=== PATIENT | male | born 1990 | race Caucasian/White ===

== ENCOUNTER 2018-08-30 10:29 | Emergency (ER) | payer BC, OTHER ==
[2018-08-30 10:35] VITALS: BP 131/84; PULSE 107; RESP 18; TEMP 98.2
[2018-08-30] MEDS ORDERED: IBUPROFEN 600 MG TAB PO STA (10:58)
--- NOTE | 2018-08-30 10:59 | ED ---
Lower Extremity Injury HPI - General Chief Complaint: Extremity Injury, Lower Stated Complaint: [facility] - lt leg injury Time Seen by Provider: 08/30/18 10:44 Source: patient, RN notes reviewed Mode of arrival: ambulatory Limitations: no limitations - History of Present Illness Initial Comments: 19-year-old male presents emergency Department chief complaint of left knee pain. Patient states that he was at work yesterday states that he is also becoming he states he junk back striking his left knee into a metal handle on a bucket. Patient states she's had pain ever sent. He states the burning swelling type pain. Patient denies any ecchymosis, or laxity noted. States it does not feel like her to give out. Patient had no prior knee injury. Patient offers no other complaints. - Related Data Home Medications Medication Instructions Recorded Confirmed Acetaminophen Tab [Tylenol Tab] 325 - 650 mg PO Q6H PRN 02/22/16 06/22/16 Ibuprofen [Motrin] 200 - 400 mg PO Q6HR PRN 02/22/16 06/22/16 Previous Rx's Medication Instructions Recorded Ibuprofen [Motrin] 800 mg PO Q8HR PRN #20 tab 06/22/16 Ibuprofen [Motrin] 600 mg PO Q8HR PRN #30 tab 08/30/18 Allergies Allergy/AdvReac Type Severity Reaction Status Date / Time No Known Allergies Allergy Verified 06/22/16 11:35 Review of Systems ROS Statement: Those systems with pertinent positive or pertinent negative responses have been documented in the HPI. ROS Other: All systems not noted in ROS Statement are negative. Past Medical History Past Medical History: No Reported History Additional Past Medical History / Comment(s): INGUINAL HERNIA History of Any Multi-Drug Resistant Organisms: None Reported Past Surgical History: Hernia Repair Past Anesthesia/Blood Transfusion Reactions: No Reported Reaction Additional Past Anesthesia/Blood Transfusion Reaction / Comment(s): NO PRIOR SURGICAL HX Past Psychological History: No Psychological Hx Reported Smoking Status: Current every day smoker Past Alcohol Use History: None Reported, Rare Past Drug Use History: None Reported - Past Family History Mother Family Medical History: No Reported History General Exam Limitations: no limitations General appearance: alert, in no apparent distress Head exam: Present: atraumatic, normocephalic, normal inspection Respiratory exam: Present: normal lung sounds bilaterally. Absent: respiratory distress, wheezes, rales, rhonchi, stridor Cardiovascular Exam: Present: regular rate, normal rhythm, normal heart sounds. Absent: systolic murmur, diastolic murmur, rubs, gallop, clicks Extremities exam: Present: other (Left knee mild tenderness to the lateral posterior aspect no laxity negative anterior posterior drawer neurovascular intact full range of motion no ecchymosis) Skin exam: Present: warm, dry, intact, normal color. Absent: rash Course Vital Signs 08/30/18 10:31 Temperature 98.2 F Pulse Rate 107 H Respiratory 18 Rate Blood Pressure 131/84 O2 Sat by Pulse 97 Oximetry Medical Decision Making - Medical Decision Making 19-year-old male presented for left leg pain. Patient left leg/knee contusion. Patient x-rays were negative. Patient discharged with ibuprofen. Disposition Clinical Impression: Contusion of left knee Disposition: HOME SELF-CARE Condition: Stable Instructions (If sedation given, give patient instructions): Knee Pain (ED) Additional Instructions: Please return to the Emergency Department if symptoms worsen or any other concerns. Prescriptions: Ibuprofen [Motrin] 600 mg PO Q8HR PRN #30 tab PRN Reason: Pain Is patient prescribed a controlled substance at d/c from ED?: No Referrals: Kristian Jones DO [Primary Care Provider] - 1-2 days Time of Disposition: 11:51
--- NOTE | 2018-08-30 11:14 | XR ---
EXAMINATION TYPE: XR knee complete LT DATE OF EXAM: 08/30/2018 CLINICAL HISTORY: pain TECHNIQUE: Three views of the left knee are obtained. COMPARISON: None. FINDINGS: There is no acute fracture/dislocation. The tri-compartment joint spaces appear within no rmal limits. The overlying soft tissue appears unremarkable. IMPRESSION: There is no acute fracture or dislocation ICD 10 NO FRACTURE, INITIAL EVALUATION
== END 2018-08-30 12:10 | disposition home or self-care (01) ==
LOC: EC 10:29
DX: S80.02XA Contusion of left knee, initial encounter (principal); F17.200 Nicotine dependence, unspecified, uncomplicated; W31.9XXA Contact with unspecified machinery, initial encounter; Y92.69 Other specified industrial and construction area as the place of occurrence of the external cause; Y99.0 Civilian activity done for income or pay
CPT/HCPCS: 99283

== ENCOUNTER 2018-11-12 14:32 | Emergency (ER) | payer BC, OTHER ==
[2018-11-12 14:45] VITALS: BP 143/97; PULSE 99; RESP 18; TEMP 97.8
--- NOTE | 2018-11-12 15:50 | XR ---
EXAMINATION TYPE: XR shoulder complete LT DATE OF EXAM: 11/12/2018 CLINICAL HISTORY: pain COMPARISON: NONE TECHNIQUE: Three views of the left shoulder are obtained. FINDINGS: There is no acute fracture/dislocation evident. The acromioclavicular and glenohumeral julienne int spaces appear within normal limits. The visualized ribs are intact and unremarkable. IMPRESSION: 1. There is no acute fracture or dislocation. ICD 10 NO FRACTURE, INITIAL EVALUATION
--- NOTE | 2018-11-12 15:58 | ED ---
Neck Injury/Pain HPI - General Chief Complaint: Neck Pain/Injury Stated Complaint: Neck/Shoulder Pain Time Seen by Provider: 11/12/18 14:44 Mode of arrival: ambulatory Limitations: no limitations - History of Present Illness Initial Comments: 27-year-old male presenting today for chief complaint of left shoulder pain. Patient states he has had left shoulder pain for years however just obtain insurance. Patient states that the pain increases with lifting left shoulder. Patient denies any direct or indirect trauma to the shoulder he denies any fever chills night sweats or swelling of the left upper extremity. Patient denies chest or back pain denies any dyspnea or dyspnea on exertion. Patient states the pain is from the left shoulder towards the left sided neck. He denies any injury or trauma to the neck or recent falls he denies any numbness tingling or loss sensation of the left upper extremity. Remaining review of systems negative upon arrival patient appears well. - Related Data Home Medications Medication Instructions Recorded Confirmed Acetaminophen Tab [Tylenol Tab] 325 - 650 mg PO Q6H PRN 02/22/16 06/22/16 Ibuprofen [Motrin] 200 - 400 mg PO Q6HR PRN 02/22/16 06/22/16 Previous Rx's Medication Instructions Recorded Ibuprofen [Motrin] 800 mg PO Q8HR PRN #20 tab 06/22/16 Ibuprofen [Motrin] 600 mg PO Q8HR PRN #30 tab 08/30/18 Allergies Allergy/AdvReac Type Severity Reaction Status Date / Time No Known Allergies Allergy Verified 06/22/16 11:35 Review of Systems ROS Statement: Those systems with pertinent positive or pertinent negative responses have been documented in the HPI. ROS Other: All systems not noted in ROS Statement are negative. Past Medical History Past Medical History: No Reported History Additional Past Medical History / Comment(s): INGUINAL HERNIA History of Any Multi-Drug Resistant Organisms: None Reported Past Surgical History: Hernia Repair Past Anesthesia/Blood Transfusion Reactions: No Reported Reaction Additional Past Anesthesia/Blood Transfusion Reaction / Comment(s): NO PRIOR SURGICAL HX Past Psychological History: No Psychological Hx Reported Smoking Status: Current every day smoker Past Alcohol Use History: None Reported, Rare Past Drug Use History: None Reported - Past Family History Mother Family Medical History: No Reported History General Exam - General Exam Comments Initial Comments: General: The patient is awake and alert, in no distress, and does not appear acutely ill. Eye: Pupils are equal, round and reactive to light, extra-ocular movements are intact. No nystagmus. There is normal conjunctiva bilaterally. No signs of icterus. Ears, nose, mouth and throat: There are moist mucous membranes and no oral lesions. Neck: The neck is supple, there is no tenderness or JVD. Cardiovascular: There is a regular rate and rhythm. No murmur, rub or gallop is appreciated. Respiratory: Lungs are clear to auscultation, respirations are non-labored, breath sounds are equal. No wheezes, stridor, rales, or rhonchi. Musculoskeletal: Normal ROM of the shoulders bilaterally patient does admit to tenderness with range of motion at the left shoulder positive Neer testing of the left shoulder positive empty ca test in the left shoulder, no tenderness of the right shoulder. Strength 5/5 of the upper extremities equal compressible bilaterally. Sensation intact of the upper shoulders equal in comparison bilaterally Radialulses equal bilaterally 2+. Neurological: A&O x 3. CN II-XII intact, There are no obvious motor or sensory deficits. Coordination appears grossly intact. Speech is normal. Skin: Skin is warm and dry and no rashes or lesions are noted. Psychiatric: Cooperative, appropriate mood & affect, normal judgment. Limitations: no limitations Course Vital Signs 11/12/18 11/12/18 14:42 16:05 Temperature 97.8 F 97.8 F Pulse Rate 99 99 Respiratory 18 18 Rate Blood Pressure 143/97 143/97 O2 Sat by Pulse 97 97 Oximetry Medical Decision Making - Medical Decision Making 1. 27-year-old male presenting for left shoulder pain times years. Patient states is persistent increasing with range of motion. Patient is positive Neer testing as well as empty can. Concerning for possible rotator cuff injury. Patient has no constitutional symptoms. No fever chills night sweats. Pain is a reproducible. Patient denies chest pain or shortness of breath. At this time feel patient is stable for discharge with outpatient orthopedic surgery for further evaluation. Patient is neurovascularly intact. Patient is agreeable care plan as well as discharged today. Return parameters were discussed at length the patient. Discussed the case with a provider Dr. Crum was agreeable care plan and discharged Disposition Clinical Impression: Chronic left shoulder pain Disposition: HOME SELF-CARE Condition: Good Instructions (If sedation given, give patient instructions): Arthralgia (ED) Additional Instructions: Please use medication as discussed. Please follow-up with orthopedic surgery within the next 1-2 weeks. Please return to emergency room if the symptoms increase or worsen or for any other concerns. Is patient prescribed a controlled substance at d/c from ED?: No Referrals: Kristian Jones DO [Primary Care Provider] - 1-2 days Desmond Hwang MD [STAFF PHYSICIAN] - 1-2 days Time of Disposition: 15:58
== END 2018-11-12 16:05 | disposition home or self-care (01) ==
LOC: EC 14:32
DX: G89.29 Other chronic pain (principal); M25.512 Pain in left shoulder; M54.2 Cervicalgia; F17.200 Nicotine dependence, unspecified, uncomplicated
CPT/HCPCS: 99283

== ENCOUNTER 2020-06-29 19:20 | Emergency (ER) | payer OTHER ==
[2020-06-29 19:24] VITALS: RESP 18; TEMP 99.3
--- NOTE | 2020-06-29 19:36 | ED ---
General Adult HPI - General Chief complaint: Extremity Injury, Lower Stated complaint: rt foot injury Time Seen by Provider: 06/29/20 19:25 Source: patient Mode of arrival: wheelchair Limitations: no limitations - History of Present Illness Initial comments: 29-year-old male presenting to emergency Department with chief complaint of right foot pain. Patient reports this started earlier today when he was walking his dog, he was pulled and stepped hard on his right foot. Patient reports ecchymosis, erythema and swelling along the lateral aspect of her right foot. He does report fever with metatarsal tenderness. Mild lateral malleolar tenderness of the right foot as well. Denies any numbness or tingling. Denies medication to alleviate the symptoms. - Related Data Home Medications Medication Instructions Recorded Confirmed Acetaminophen Tab [Tylenol Tab] 325 - 650 mg PO Q6H PRN 02/22/16 06/22/16 Ibuprofen [Motrin] 200 - 400 mg PO Q6HR PRN 02/22/16 06/22/16 Previous Rx's Medication Instructions Recorded Ibuprofen [Motrin] 800 mg PO Q8HR PRN #20 tab 06/22/16 Ibuprofen [Motrin] 600 mg PO Q8HR PRN #30 tab 08/30/18 Allergies Allergy/AdvReac Type Severity Reaction Status Date / Time No Known Allergies Allergy Verified 06/22/16 11:35 Review of Systems ROS Statement: Those systems with pertinent positive or pertinent negative responses have been documented in the HPI. ROS Other: All systems not noted in ROS Statement are negative. Past Medical History Past Medical History: No Reported History Additional Past Medical History / Comment(s): INGUINAL HERNIA History of Any Multi-Drug Resistant Organisms: None Reported Past Surgical History: Hernia Repair Past Anesthesia/Blood Transfusion Reactions: No Reported Reaction Additional Past Anesthesia/Blood Transfusion Reaction / Comment(s): NO PRIOR SURGICAL HX Past Psychological History: No Psychological Hx Reported Smoking Status: Current some day smoker Past Alcohol Use History: None Reported, Rare Past Drug Use History: None Reported - Past Family History Mother Family Medical History: No Reported History General Exam - General Exam Comments Initial Comments: General: Well-developed well-nourished distress HEENT: Normocephalic/atraumatic, PERLL, pharynx erythema, swallowing well, EAC no erythema, no exudates, TM clear, no cervical lymph nodes Neck: Supple, nontender, trachea midline Chest/Lungs: Normal respirations, no signs of respiratory distress clear to auscultation bilaterally no wheezes, rales, rhonchi Cardiac: Regular rate and rhythm, normal S1-S2, no murmurs rubs or gallops Abdomen/GI: Soft nontender, bowel sounds equal or quadrant x4, no guarding, no rebound no CVA tenderness Musculoskeletal: Tenderness along the lateral aspect of the right foot, ecchymosis and swelling along the lateral aspect of the right foot,, full range of motion, no edema, strength equal bilaterally, sensation intact Skin: Warmth, no rashes or lesions, no cyanosis or diaphoresis Neurologic: AAO x 3, CN 2-12 intact, Psychiatric: Mood and affect normal, judgment normal Limitations: no limitations Course Vital Signs 06/29/20 06/29/20 19:22 19:48 Temperature 99.3 F Pulse Rate 113 H 110 H Respiratory 18 18 Rate Blood Pressure 147/84 137/76 O2 Sat by Pulse 99 96 Oximetry Procedures - Orthopedic Splinting/Casting Injury #1 Side: right Lower Extremity Injury Location: foot Lower Extremity Immobilizer: posterior splint, Luciano wrap, synthetic pre-padded splint Other Orthopedic Equipment: crutches Medical Decision Making - Medical Decision Making 29-year-old male presenting to the emergency department with chief complaint right foot pain. On physical examination, patient is neurovascularly intact. H e does have ecchymosis and swelling along the lateral aspect of the right foot. X-ray reveals a fracture at the base of the fifth metatarsal. Posterior splint applied. Patient was offered analgesia, he declined. Patient was advised to follow with medical reception specialist. Strict return for were thoroughly discussed the patient is an attending agreeable. Case discussed with physician. Disposition Clinical Impression: Fracture of fifth metatarsal bone, Right foot injury Disposition: HOME SELF-CARE Condition: Stable Instructions (If sedation given, give patient instructions): Foot Fracture in Adults (ED) Additional Instructions: Rest, ice, keep the foot elevated. Alternate between Tylenol and Motrin for pain control. Follow-up with medical reception specialist. Return to emergency department if symptoms worsen. Is patient prescribed a controlled substance at d/c from ED?: No Referrals: None,Stated [Primary Care Provider] - 1-2 days Arpit Dodd DO [Doctor of Osteopathic Medicine] - 1-2 days Time of Disposition: 20:32
[2020-06-29 19:55] VITALS: BP 137/76
--- NOTE | 2020-06-29 19:56 | XR ---
EXAMINATION TYPE: XR ankle complete RT DATE OF EXAM: 06/29/2020 COMPARISON: 10/03/2011 HISTORY: Pain. Injury. TECHNIQUE: 3 views FINDINGS: Ankle mortise is anatomic. I see no fracture nor dislocation. Joint spaces are fairly linda l. IMPRESSION: No fracture seen. No change.
--- NOTE | 2020-06-29 19:57 | XR ---
EXAMINATION TYPE: XR foot complete RT DATE OF EXAM: 06/29/2020 COMPARISON: NONE HISTORY: Pain TECHNIQUE: 3 views FINDINGS: There is nondisplaced transverse fracture across the base of the fifth metatarsal. Fragment s are 3 mm. The toes appear intact. Hindfoot is intact. IMPRESSION: Acute fracture base of the fifth metatarsal.
[2020-06-29 20:53] VITALS: PULSE 105
== END 2020-06-29 20:54 | disposition home or self-care (01) ==
LOC: EC 19:20
DX: S92.351A Displaced fracture of fifth metatarsal bone, right foot, initial encounter for closed fracture (principal); F17.200 Nicotine dependence, unspecified, uncomplicated; W01.0XXA Fall on same level from slipping, tripping and stumbling without subsequent striking against object, initial encounter; Y93.K1 Activity, walking an animal; Y92.89 Other specified places as the place of occurrence of the external cause
CPT/HCPCS: 29515; 99283

== ENCOUNTER 2024-02-13 10:26 | Emergency (ER) | payer OTHER ==
[2024-02-13 10:41] VITALS: BP 130/83; PULSE 71; RESP 18; TEMP 98.1
--- NOTE | 2024-02-13 10:43 | ED ---
Chest Pain HPI - General Stated Complaint: abn labs Time Seen by Provider: 02/13/24 10:40 Source: patient, RN notes reviewed - History of Present Illness Initial Comments: Quick Note- 33-year-old male with chief complaint of intermittent chest tightness for the last 3 days. He is also endorsing exertional dyspnea. States he has been having symptoms of palpitations and the tightness will radiate into his back. Patient states that he did have a viral infection last there is no history of bodyaches, fevers or nasal congestion and cough however the symptoms have subsided. Denies history of DVT/PE. no blood thinner use. - Related Data Home Medications Medication Instructions Recorded Confirmed Acetaminophen Tab [Tylenol Tab] 325 - 650 mg PO Q6H PRN 02/22/16 06/22/16 Ibuprofen [Motrin] 200 - 400 mg PO Q6HR PRN 02/22/16 06/22/16 Previous Rx's Medication Instructions Recorded Ibuprofen [Motrin] 800 mg PO Q8HR PRN #20 tab 06/22/16 Ibuprofen [Motrin] 600 mg PO Q8HR PRN #30 tab 08/30/18 Ibuprofen [Motrin] 600 mg PO Q6HR PRN #20 tab 12/10/23 Allergies Allergy/AdvReac Type Severity Reaction Status Date / Time No Known Allergies Allergy Verified 02/13/24 10:41 Review of Systems ROS Statement: Those systems with pertinent positive or pertinent negative responses have been documented in the HPI. ROS Other: All systems not noted in ROS Statement are negative. Past Medical History Past Medical History: No Reported History Additional Past Medical History / Comment(s): INGUINAL HERNIA History of Any Multi-Drug Resistant Organisms: None Reported Past Surgical History: Hernia Repair Past Anesthesia/Blood Transfusion Reactions: No Reported Reaction Additional Past Anesthesia/Blood Transfusion Reaction / Comment(s): NO PRIOR SURGICAL HX Past Psychological History: No Psychological Hx Reported Smoking Status: Current some day smoker Past Alcohol Use History: None Reported, Rare Past Drug Use History: None Reported - Past Family History Mother Family Medical History: No Reported History General Exam - General Exam Comments Initial Comments: Visual Physical Exam Vital signs reviewed General: Well-appearing, nontoxic, no acute distress. Head: Normocephalic, atraumatic Eyes: PERRLA, EOMI ENT: Airway patent Chest: Nonlabored breathing Skin: No visual rash, normal skin tone Neuro: Alert and oriented 3 Musculoskeletal: No gross abnormalities Course Vital Signs 02/13/24 10:36 Temperature 98.1 F Pulse Rate 71 Respiratory 18 Rate Blood Pressure 130/83 O2 Sat by Pulse 100 Oximetry Chest Pain MDM - MDM I completed the quick note portion of this chart signed Brandy Hernandez PA-C Comprehensive medical decision-making was unable to be completed due to patient leaving AGAINST MEDICAL ADVICE. Disposition Clinical Impression: Left against medical advice Disposition: LEFT AGAINST MEDICAL ADVICE Condition: Undetermined Is patient prescribed a controlled substance at d/c from ED?: No Referrals: Felipe Hill MD [Primary Care Provider] - 1-2 days Time of Disposition: 13:40
--- NOTE | 2024-02-13 11:13 | XR ---
EXAMINATION TYPE: XR chest 2V DATE OF EXAM: 02/13/2024 COMPARISON: 09/11/2013 HISTORY: Chest pain TECHNIQUE: Frontal and lateral views of the chest are obtained. FINDINGS: There is no focal air space opacity. No evidence for pneumothorax. No pleural effusion. The cardiac silhouette size is within normal limits. The osseous structures are grossly intact. IMPRESSION: 1. No acute cardiopulmonary process.
== END 2024-02-13 13:33 | disposition left against medical advice (07) ==
LOC: EC 10:26
DX: U07.1 COVID-19 (principal); F17.200 Nicotine dependence, unspecified, uncomplicated; Z53.29 Procedure and treatment not carried out because of patient's decision for other reasons
CPT/HCPCS: 71046; 87636; 93005; 99285

== ENCOUNTER 2024-03-22 20:43 | Emergency (ER) | payer OTHER ==
--- NOTE | 2024-03-22 21:05 | ED ---
General Adult HPI - General Chief complaint: Anxiety Stated complaint: Mental health Time Seen by Provider: 03/22/24 20:49 Source: patient Mode of arrival: ambulatory Limitations: no limitations - History of Present Illness Initial comments: Dictation was produced using [employer] dictation software. please excuse any grammatical, word or spelling errors. Chief Complaint: 33-year-old male with depression and anxiety History of Present Illness: Patient is 33-year-old male he states he was recently diagnosed with depression and anxiety by his primary care doctor. He was prescribed buspirone and venlafaxine. Patient states since he woke up today started to have some worsening depression and anxiety. He states that he does not know what is causing his symptoms. Patient denies any suicidal homicidal ideation. The ROS documented in this emergency department record has been reviewed and confirmed by me. Those systems with pertinent positive or negative responses have been documented in the HPI. All other systems are other negative and/or noncontributory. - Related Data Home Medications Medication Instructions Recorded Confirmed Acetaminophen Tab [Tylenol Tab] 325 - 650 mg PO Q6H PRN 02/22/16 06/22/16 Ibuprofen [Motrin] 200 - 400 mg PO Q6HR PRN 02/22/16 06/22/16 Previous Rx's Medication Instructions Recorded Ibuprofen [Motrin] 800 mg PO Q8HR PRN #20 tab 06/22/16 Ibuprofen [Motrin] 600 mg PO Q8HR PRN #30 tab 08/30/18 Ibuprofen [Motrin] 600 mg PO Q6HR PRN #20 tab 12/10/23 Allergies Allergy/AdvReac Type Severity Reaction Status Date / Time No Known Allergies Allergy Verified 03/22/24 20:47 Review of Systems ROS Statement: Those systems with pertinent positive or pertinent negative responses have been documented in the HPI. ROS Other: All systems not noted in ROS Statement are negative. Past Medical History Past Medical History: No Reported History Additional Past Medical History / Comment(s): INGUINAL HERNIA History of Any Multi-Drug Resistant Organisms: None Reported Past Surgical History: Hernia Repair Past Anesthesia/Blood Transfusion Reactions: No Reported Reaction Additional Past Anesthesia/Blood Transfusion Reaction / Comment(s): NO PRIOR SURGICAL HX Past Psychological History: No Psychological Hx Reported Smoking Status: Current some day smoker Past Alcohol Use History: None Reported, Rare Past Drug Use History: None Reported - Past Family History Mother Family Medical History: No Reported History General Exam - General Exam Comments Initial Comments: PHYSICAL EXAM: General Impression: Alert and oriented x3, not in acute distress HEENT: Normocephalic atraumatic, extra-ocular movements intact, pupils equal and reactive to light bilaterally, mucous membranes moist. Cardiovascular: Heart regular rate and rhythm Chest: Able to complete full sentences, no retractions, no tachypnea Abdomen: abdomen soft, non-tender, non-distended, no organomegaly Musculoskeletal: Pulses present and equal in all extremities, no peripheral edema Motor: no focal deficits noted Neurological: CN II-XII grossly intact, no focal motor or sensory deficits noted Skin: Intact with no visualized rashes Psych: tearful Limitations: no limitations Course Vital Signs 03/22/24 20:44 Temperature 98.2 F Pulse Rate 127 H Respiratory 18 Rate Blood Pressure 130/87 O2 Sat by Pulse 97 Oximetry Medical Decision Making - Medical Decision Making Was pt. sent in by a medical professional or institution (, PA, FITNESS FLOOR ATTENDANT, urgent care, hospital, or fci...) When possible be specific @ -No Did you speak to anyone other than the patient for history (EMS, parent, family, police, friend...)? What history was obtained from this source @ -No Did you review nursing and triage notes (agree or disagree)? Why? @ -I reviewed and agree with nursing and triage notes Were old charts reviewed (outside hosp., previous admission, EMS record, old EKG, old radiological studies, urgent care reports/EKG's, fci records)? Report findings @ -No old charts were reviewed Differential Diagnosis (chest pain, altered mental status, abdominal pain women, abdominal pain men, vaginal bleeding, musculoskeletal, weakness, fever, dyspnea, syncope, headache, dizziness, GI bleed, back pain, seizure, CVA, palpatations, mental health)? @ -Differential Mental Health: Depression, anxiety, bipolar, psychosis, schizophrenia, borderline personality, situational depression, adjustment disorder, behavioral disorder, brain tumor, malingering, substance abuse, encephalopathy, medication reaction, dementia, hypothyroidism, degenerative neurologic disorder, lupus.... This is not meant to be all-inclusive list EKG interpreted by me (3pts min.). @ -None done X-rays interpreted by me (1pt min.). @ -None done CT interpreted by me (1pt min.). @ -None done U/S interpreted by me (1pt. min.). @ -None done What testing was considered but not performed or refused? (CT, X-rays, U/S, labs)? Why? @ -None What meds were considered but not given or refused? Why? @ -None Was smoking cessation discussed for >3mins.? @ -No Were there social determinants of health that impacted care today? How? (Homelessness, low income, unemployed, alcoholism, drug addiction, transportation, low edu. Level, literacy, decrease access to med. care, halfway, rehab)? @ -No Was there de-escalation of care discussed even if they declined (Discuss DNR or withdrawal of care, Hospice)? DNR status @ -No What co-morbidities impacted this encounter? (DM, HTN, Smoking, COPD, CAD, Cancer, CVA, ARF, Chemo, Hep., AIDS, mental health diagnosis, sleep apnea, morbid obesity)? @ -None Was patient admitted / discharged? Hospital course, mention meds given and route, prescriptions, significant lab abnormalities, going to OR and other pertinent info. @ -33-year-old male with chief complaint of anxiety and depression. Patient tachycardic on arrival. Repeat vitals are improved. given Xanax observed emergency department for 2 hours. Reevaluated bedside at 10:44 PM found to be in stable mental condition Did you discuss the management of the patient with other professionals (professionals i.e. , PA, FITNESS FLOOR ATTENDANT, lab, RT, psych nurse, social service liaison, missile tracking technician, teacher, nuclear officer, family preservation caseworker)? Give summary @ -No Was critical care preformed (if so, how long)? @ -No Undiagnosed new problem with uncertain prognosis? @ -No Drug Therapy requiring intensive monitoring for toxicity (Heparin, Nitro, Insulin, Cardizem)? @ -No Were any procedures done? @ -No Diagnosis/symptom? Acute, or Chronic, or Acute on Chronic? Uncomplicated (without systemic symptoms) or Complicated (systemic symptoms)? @ -Anxiety Side effects of treatment? @ -No Exacerbation, Progression, or Severe Exacerbation? @ -No Poses a threat to life or bodily function? How? (Chest pain, [place], [place], pneumonia, PE, COPD, DKA, ARF, appy, cholecystitis, CVA, Diverticulitis, Homicidal, Suicidal, threat to staff... and all critical care pts) @ -No Disposition Clinical Impression: Acute anxiety Disposition: HOME SELF-CARE Condition: Fair Instructions (If sedation given, give patient instructions): Generalized Anx iety Disorder (ED) Is patient prescribed a controlled substance at d/c from ED?: No Referrals: Felipe Hill MD [Primary Care Provider] - 1-2 days Time of Disposition: 21:05
[2024-03-22] MEDS: ALPRAZolam 1 MG TAB PO STA (21:16)
[2024-03-22 22:58] VITALS: BP 131/77; PULSE 92; RESP 17; TEMP 98.9
== END 2024-03-22 22:58 | disposition home or self-care (01) ==
LOC: EC 20:43
CPT/HCPCS: 99283